=== PATIENT | male | born 1970 | race Hispanic/Latino ===

== ENCOUNTER 2019-12-02 16:39 | Inpatient (IN) | payer BC ==
[~2019-12-02] VITALS: Ht 170.2 cm; Wt 88.0 kg
[2019-12-02] MEDS ORDERED: ONDANSETRON HCL INJ 2MG/ML 2ML 2 MG/ML VIAL IV STA (16:41)
[2019-12-02] MEDS ORDERED: PANTOPRAZOLE 40 MG 10ML VIAL IV STA (16:41)
[2019-12-02] MEDS ORDERED: SODIUM CHLORIDE 0.9% 1000ML 1,000 ML IV ONE (16:45)
[2019-12-02 16:46] LABS: BASOPHILS % 0.3 % (0.0-1.0); EOSINOPHILS # (AUTO) 0.1 (0.0-0.4); EOSINOPHILS % 0.5 % (0.0-6.0); HEMATOCRIT 31.2 % (38.2-49.6); HEMOGLOBIN 10.5 g/dL (14.0-18.0); LYMPHOCYTES % 23.5 % (18.0-39.1); MEAN CORPUSCULAR HEMOGLOBIN 29.2 pg (28-32); MEAN CORPUSCULAR HGB CONC 33.7 g/dL (31-35); MEAN CORPUSCULAR VOLUME 86.7 fL (81-99); MONOCYTES # (AUTO) 0.7 (0.2-0.8); MONOCYTES % 5.4 % (4.4-11.3); NEUTROPHILS % 69.9 % (38.7-80.0); PLATELET COUNT 352 x10e3/uL (140-360); RED CELL DISTRIBUTION WIDTH 12.5 % (11.7-14.4)
[2019-12-02 16:50] LABS: ALANINE AMINOTRANSFERASE 16 IU/L (0-55); ALBUMIN 3.5 g/dL (3.5-5.0); ALBUMIN/GLOBULIN RATIO 1.3 (0.8-2.0); ALKALINE PHOSPHATASE 82 IU/L (40-150); ANION GAP 13.8 mmol/L (8-16); BLOOD UREA NITROGEN 22 mg/dL (7-26); BUN/CREATININE RATIO 27 (6-25); CALCIUM 8.4 mg/dL (8.4-10.2); CARBON DIOXIDE 22 mmol/L (22-29); CHLORIDE 103 mmol/L (98-107); CREATININE, SERUM 0.82 mg/dL (0.72-1.25); EST GLOMERULAR FILTRATION RATE > 60 ML/MIN (60-); GLUCOSE 133 mg/dL (74-118); POTASSIUM 3.8 mmol/L (3.5-5.1); SODIUM 135 mmol/L (136-145)
[2019-12-02 19:13] LABS: BASOPHILS % 0.3 % (0.0-1.0); EOSINOPHILS # (AUTO) 0.2 (0.0-0.4); EOSINOPHILS % 1.5 % (0.0-6.0); HEMATOCRIT 25.4 % (38.2-49.6); HEMOGLOBIN 8.8 g/dL (14.0-18.0); LYMPHOCYTES # (AUTO) 3.1 (1.0-3.2); LYMPHOCYTES % 26.2 % (18.0-39.1); MEAN CORPUSCULAR HEMOGLOBIN 29.7 pg (28-32); MEAN CORPUSCULAR HGB CONC 34.6 g/dL (31-35); MEAN CORPUSCULAR VOLUME 85.8 fL (81-99); MONOCYTES # (AUTO) 0.8 (0.2-0.8); MONOCYTES % 6.8 % (4.4-11.3); NEUTROPHILS # (AUTO) 7.7 (2.1-6.9); NEUTROPHILS % 64.6 % (38.7-80.0); PLATELET COUNT 275 x10e3/uL (140-360); RED BLOOD COUNT 2.96 x10e6/uL (4.3-5.7); RED CELL DISTRIBUTION WIDTH 12.9 % (11.7-14.4)
[2019-12-02] MEDS ORDERED: ONDANSETRON HCL INJ 2MG/ML 2ML 2 MG/ML VIAL IV PRN (19:30)
[2019-12-02] MEDS: SODIUM CHLORIDE 0.9% 1000ML 1,000 ML IV SCH ×2 (21:03→22:32)
[2019-12-02 21:29] VITALS: BP 121/75
--- NOTE | 2019-12-02 21:40 | NUR ---
RECEIVED REPORT FROM SANDY, ER NURSE. PATIENT ARRIVED VIA WHEELCHAIR ACCOMPANIED BY HIS . PATIENT IN NO PAIN OR DISTRESS. CALL LIGHT WITHIN REACH. PATIENT IS A&OX4 AND AMBULATES.
[2019-12-02 21:45] VITALS: BP 129/79
[2019-12-03] VITALS (7 sets, daily range): BP systolic 105–129; BP diastolic 65–79
[2019-12-03 00:56] LABS: HEMATOCRIT 22.5 % (38.2-49.6); HEMOGLOBIN 7.8 g/dL (14.0-18.0)
--- NOTE | 2019-12-03 01:15 | NUR ---
RECEIVED LAB RESULTS AND THE PATIENT'S H/H IS 7.8/22.5. CALLED AND TALKED TO DR. Vladislav MORIN ABOUT THE LAB RESULTS AND HE SAID USUALLY TRANSFUSE BLOOD UNDER 7 AND GIVE IRON INFUSION IV IN THE MORNING.
[2019-12-03 01:43] LABS: FERRITIN 221.09 ng/mL (21.81-274.66)
[2019-12-03] MEDS ORDERED: PNEUMOCOCCAL VACCINE POLYVALENT 23 MCG/0.5 ML VIAL IM SCH (03:18)
[2019-12-03 05:21] LABS: HEMATOCRIT 22.1 % (38.2-49.6); HEMOGLOBIN 7.5 g/dL (14.0-18.0)
[2019-12-03 05:42] LABS: INR 1.15; PROTHROMBIN TIME 15.4 seconds (11.9-14.5)
[2019-12-03 05:43] LABS: PARTIAL THROMBOPLASTIN TIME 28.9 seconds (23.8-35.5)
[2019-12-03] MEDS: SODIUM CHLORIDE 0.9% 1000ML 1,000 ML IV SCH ×2 (06:02→18:40)
--- NOTE | 2019-12-03 07:15 | NUR ---
Received patient lying in bed with eyes open. Respiration even and unlabored without SOB. NPO at this time since midnight for EGD today. Denies pain. Call light in reach. Spouse at bedside.
--- NOTE | 2019-12-03 07:27 | NUR ---
GAVE BEDSIDE SHIFT REPORT TO ONCOMING NURSE. CALL LIGHT WITHIN REACH. PATIENT ASLEEP IN BED. PATIENT IN NO PAIN OR DISTRESS. AT BEDSIDE
[2019-12-03] MEDS ORDERED: PANTOPRAZOLE 40 MG 10ML VIAL IV SCH (09:00)
[2019-12-03] MEDS: IRON SUCROSE 100 MG in SODIUM CHLORIDE 0.9% 100 ML 100 ML IV SCH (09:58)
[2019-12-03 12:00] LABS: HEMATOCRIT 22.6 % (38.2-49.6); HEMOGLOBIN 7.9 g/dL (14.0-18.0)
--- NOTE | 2019-12-03 12:30 | NUR ---
Patient is transported for EGD at this time.
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
--- NOTE | 2019-12-03 14:20 | NUR ---
Patient is back from EGD. Respiration even and unlabored without SOB. Call light in reach.
[2019-12-03] MEDS ORDERED: CYANOCOBALAMIN INJ 1,000 MCG/ML VIAL IM NR (15:00)
[2019-12-03] MEDS ORDERED: MIDAZOLAM HCL 2 MG/2 ML VIAL ONE (16:10)
[2019-12-03] MEDS ORDERED: FENTANYL CITRATE/PF 100MCG/2 ML INJ ONE (16:10)
--- NOTE | 2019-12-03 17:36 | Diagnostic Imaging Report ---
Abdominal ultrasound. History: Cirrhosis, anemia. Comparison: None available. Discussion: Portions of the liver were difficult to visualize secondary to overlying bowel gas. Transverse and longitudinal images of the abdomen were obtained demonstrating a liver of normal size and echogenicity measuring 15.5 cm in length. The portal vein is patent with hepatopetal flow and is within normal limits measuring 5 mm in diameter. The biliary tree is within normal limits with the common bile duct measuring 3 mm in diameter. The gallbladder is normal without evidence of stones, wall thickening, or pericholecystic fluid. The sonographic Snell's sign was negative. The kidneys are normal in size and echogenicity bilaterally without evidence of hydronephrosis, stones, or mass. The right kidney measures 12.9 cm and the left kidney measures 12.9 cm in length. The spleen is normal in size and appearance measuring 11.9 cm in length. The pancreas and IVC were obscured by overlying bowel gas. The abdominal aorta is within normal limits. There is no evidence of free fluid. IMPRESSION: Somewhat limited exam. No focal hepatic abnormality. Signed by: Dustin Robles on 12/03/2019 5:34 PM
[2019-12-03] MEDS ORDERED: PROPOFOL IV EMULSION 10 MG/ML 20 ML VIAL ONE (18:05)
[2019-12-03] MEDS ORDERED: LIDOCAINE HCL 2% LOCAL INJ 5 ML SDV VIAL INJ ONE (18:05)
[2019-12-03 18:42] LABS: HEMOGLOBIN 7.4 g/dL (14.0-18.0)
--- NOTE | 2019-12-03 19:12 | NUR ---
Report given to hose handler. Respiration even and unlabored without SOB. Call light in reach.
[2019-12-03] MEDS: PANTOPRAZOLE 40 MG 10ML VIAL IV SCH (21:08)
--- NOTE | 2019-12-03 21:21 | Operative Report ---
DATE OF PROCEDURE: 12/03/2019 SURGEON: Richard Lee MD PROCEDURES: EGD with biopsies. INDICATIONS FOR EGD: History of hematemesis, melena. MEDICATIONS: The patient was done under MAC, please see anesthesiologist's note. PROCEDURE IN DETAIL: With the patient in the left lateral decubitus position, a flexible fiberoptic Olympus gastroscope was introduced into the esophagus under direct visualization without any difficulty. Grade 1 esophageal varices were noted in the esophagus without active bleeding. The scope was then advanced with ease into the stomach and mucosa overlying the body and the antrum revealed changes compatible with portal hypertensive gastropathy. Biopsies were obtained and sent to stain for H pylori. Pylorus was of normal contour and shape was intubated with ease and the scope was advanced all the way to the second portion of the duodenum. The scope was then withdrawn slowly. Mucosa overlying the proximal second portion appeared to be within normal limits. Two ulcers were noted in the duodenal bulb up to 6 mm in size with somewhat heaped up margins without active bleeding. The scope was then withdrawn back into the stomach and retroflexed and mucosa overlying the fundus revealed some portal hypertensive gastropathy changes, but there were no fundal varices or cardiac varices. The scope was then straightened out and it was subsequently withdrawn and the patient tolerated procedure well. IMPRESSION: 1. Grade 1 esophageal varices without active bleeding. 2. Gastritis, biopsied. Biopsies were sent to stain for H pylori. 3. Portal hypertensive gastropathy. 4. Duodenal bulb ulcers x2 up to 6 mm in size with somewhat heaped up margins without active bleeding. PLAN: Follow up histology. Check acute hepatitis panel. Check ultrasound of the liver. Initiate clear liquid diet. Richard Lee MD [facility] [place]/MODL /[id number] cc: Kvng Retana MD
[2019-12-04] VITALS (8 sets, daily range): BP systolic 110–119; BP diastolic 64–76
--- NOTE | 2019-12-04 00:12 | NUR ---
DR. Sachi MORIN DOING ROUNDS. SAID CHANGE HH TO DAILY.
[2019-12-04] MEDS: SODIUM CHLORIDE 0.9% 1000ML 1,000 ML IV SCH ×3 (02:40→20:24)
[2019-12-04 05:57] LABS: BASOPHILS % 0.5 % (0.0-1.0); EOSINOPHILS # (AUTO) 0.3 (0.0-0.4); EOSINOPHILS % 3.3 % (0.0-6.0); HEMATOCRIT 21.8 % (38.2-49.6); HEMOGLOBIN 7.2 g/dL (14.0-18.0); LYMPHOCYTES # (AUTO) 1.9 (1.0-3.2); LYMPHOCYTES % 24.5 % (18.0-39.1); MEAN CORPUSCULAR HEMOGLOBIN 29.4 pg (28-32); MONOCYTES # (AUTO) 0.7 (0.2-0.8); MONOCYTES % 8.8 % (4.4-11.3); NEUTROPHILS # (AUTO) 4.8 (2.1-6.9); NEUTROPHILS % 62.6 % (38.7-80.0); PLATELET COUNT 253 x10e3/uL (140-360); RED BLOOD COUNT 2.45 x10e6/uL (4.3-5.7); RED CELL DISTRIBUTION WIDTH 13.3 % (11.7-14.4)
[2019-12-04 06:18] LABS: ALANINE AMINOTRANSFERASE 17 IU/L (0-55); ALBUMIN 2.9 g/dL (3.5-5.0); ALBUMIN/GLOBULIN RATIO 1.5 (0.8-2.0); ALKALINE PHOSPHATASE 69 IU/L (40-150); ANION GAP 9.6 mmol/L (8-16); BLOOD UREA NITROGEN 7 mg/dL (7-26); BUN/CREATININE RATIO 10 (6-25); CALCIUM 7.9 mg/dL (8.4-10.2); CARBON DIOXIDE 24 mmol/L (22-29); CHLORIDE 109 mmol/L (98-107); EST GLOMERULAR FILTRATION RATE > 60 ML/MIN (60-); GLUCOSE 98 mg/dL (74-118); POTASSIUM 3.6 mmol/L (3.5-5.1); SODIUM 139 mmol/L (136-145)
--- NOTE | 2019-12-04 07:00 | NUR ---
RECEIVED PATIENT AWAKE RESTING IN BED NO S/S OF DISTRESS. BED LOW, WHEELS LOCKED, SIDE RAILS X2. CALL LIGHT IN REACH WILL CONTINUE TO MONITOR PATIENT.
[2019-12-04] MEDS: CYANOCOBALAMIN INJ 1,000 MCG/ML VIAL IM SCH (09:39)
[2019-12-04] MEDS: IRON SUCROSE 100 MG in SODIUM CHLORIDE 0.9% 100 ML 100 ML IV SCH (09:39)
[2019-12-04] MEDS: PANTOPRAZOLE 40 MG 10ML VIAL IV SCH ×2 (09:39→21:08)
--- NOTE | 2019-12-04 09:48 | Progress Note ---
DATE: 12/04/2019 SUBJECTIVE: A 49-year-old gentleman who came in with acute GI bleed status post scope, found to have esophageal varices. The patient is currently on pantoprazole and Zofran. The patient is already on iron sucrose and vitamin B12 replacement. At this time, patient is symptom free. No chest pain. No shortness of breath and no palpitations. OBJECTIVE: VITAL SIGNS: Temperature is still 99, pulse of 94, respirations of 19, blood pressure is 110/76. HEENT: Normocephalic and atraumatic. No icterus present. CVS: S1 and S2 are normal. Regular rate and rhythm. ABDOMEN: Nontender, nondistended. EXTREMITIES: No clubbing, no cyanosis, no edema. LABORATORY VALUES: Hemoglobin is 11.2, hematocrit 21.8, white count 7.6. Chemistry; sodium of 139, potassium 3.9, BUN and creatinine 7 and 0.7. ALT and AST within normal limits. Total bilirubin within normal limits. B12 was low, has been replaced. ASSESSMENT: Mr. Dat Arias with: Esophageal varices with GI bleed. PLAN: Continue to monitor the patient's H and H. had MRI of the liver. Ultrasound of liver was within normal limits. The patient also will get a hepatitis panel and antibodies. We will continue to monitor the patient's status and possible discharge tomorrow depending on clinical course and also laboratory findings. Further recommendation per clinical course. We will continue to monitor the patient. Additional diagnosis includes iron deficiency and also B12 deficiency. MD ALDAIR Jerez/MODL /[id number]
--- NOTE | 2019-12-04 12:38 | NUR ---
PATIENT A/O X3, EVEN RESPIRATIONS ON RA. LUNG SOUNDS CLEAR TO AUSCULTATION. PATIENT TOLERATING GI SOFT DIET. RIGHT AC 20 GAUGE IV WITH NS @ 125 CC/HR. PATIENT AMBULATES INDEPENDENTLY. TELEMETRY #3 SR. NO PAIN AT THIS TIME. LAST BOWEL MOVEMENT FRIDAY. CALL LIGHT IN REACH WILL CONTINUE TO MONITOR PATIENT.
[2019-12-05 00:18] VITALS: BP 119/60
[2019-12-05 04:00] VITALS: BP 110/66
[2019-12-05] MEDS: SODIUM CHLORIDE 0.9% 1000ML 1,000 ML IV SCH (04:30)
[2019-12-05 05:24] LABS: BASOPHILS % 0.4 % (0.0-1.0); EOSINOPHILS # (AUTO) 0.3 (0.0-0.4); EOSINOPHILS % 3.3 % (0.0-6.0); HEMATOCRIT 23.9 % (38.2-49.6); HEMOGLOBIN 7.9 g/dL (14.0-18.0); LYMPHOCYTES # (AUTO) 2.3 (1.0-3.2); LYMPHOCYTES % 27.9 % (18.0-39.1); MEAN CORPUSCULAR HEMOGLOBIN 29.9 pg (28-32); MEAN CORPUSCULAR HGB CONC 33.1 g/dL (31-35); MEAN CORPUSCULAR VOLUME 90.5 fL (81-99); MONOCYTES # (AUTO) 0.6 (0.2-0.8); MONOCYTES % 7.9 % (4.4-11.3); NEUTROPHILS # (AUTO) 4.9 (2.1-6.9); NEUTROPHILS % 60.3 % (38.7-80.0); PLATELET COUNT 277 x10e3/uL (140-360); RED BLOOD COUNT 2.64 x10e6/uL (4.3-5.7); RED CELL DISTRIBUTION WIDTH 14.4 % (11.7-14.4)
[2019-12-05 05:48] LABS: ALANINE AMINOTRANSFERASE 15 IU/L (0-55); ALBUMIN/GLOBULIN RATIO 1.2 (0.8-2.0); ALKALINE PHOSPHATASE 77 IU/L (40-150); ANION GAP 12.4 mmol/L (8-16); BLOOD UREA NITROGEN 6 mg/dL (7-26); BUN/CREATININE RATIO 9 (6-25); CARBON DIOXIDE 23 mmol/L (22-29); CHLORIDE 109 mmol/L (98-107); CREATININE, SERUM 0.69 mg/dL (0.72-1.25); EST GLOMERULAR FILTRATION RATE > 60 ML/MIN (60-); GLUCOSE 110 mg/dL (74-118); POTASSIUM 3.4 mmol/L (3.5-5.1); SODIUM 141 mmol/L (136-145)
--- NOTE | 2019-12-05 07:00 | NUR ---
RECEIVED PATIENT AWAKE RESTING IN BED NO S/S OF DISTRESS. BED LOW, WHEELS LOCKED, SIDE RAILS X2. CALL LIGHT IN REACH WILL CONTINUE TO MONITOR PATIENT.
[2019-12-05 08:14] VITALS: BP 117/72
[2019-12-05] MEDS: CYANOCOBALAMIN INJ 1,000 MCG/ML VIAL IM SCH (09:06)
[2019-12-05] MEDS: PANTOPRAZOLE 40 MG 10ML VIAL IV SCH (09:06)
[2019-12-05 09:10] VITALS: BP 117/72
[2019-12-05] MEDS ORDERED: PNEUMOCOCCAL VACCINE POLYVALENT 23 MCG/0.5 ML VIAL IM SCH (09:15)
[2019-12-05] MEDS ORDERED: FERROUS SULFAT325 M1 PO (09:28)
[2019-12-05] MEDS ORDERED: PANTOPRAZOLE SO40 MG PO (09:29)
[2019-12-05] MEDS: IRON SUCROSE 100 MG in SODIUM CHLORIDE 0.9% 100 ML 100 ML IV SCH (10:00)
--- NOTE | 2019-12-05 11:23 | NUR ---
REMOVED PATIENTS IV. CATHETER TIP INTACT AND PRESSURE DRESSING APPLIED.
--- NOTE | 2019-12-05 11:23 | Progress Note ---
DATE: 12/05/2019 SUBJECTIVE: A 49-year-old male, who came in with acute GI bleed status post endoscopy with findings of esophageal varices. The patient's labs are pending. The patient is feeling stable. No complaints. No chest pain, no shortness of breath and no nausea, vomiting, or diarrhea. No palpitations. OBJECTIVE: VITAL SIGNS: Temperature is 98, pulse of 82, respirations of 18, blood pressure is 117/72, pulse oximetry of 98%. HEENT: Normocephalic and atraumatic. Pallor present. CVS: S1 and S2 normal. Regular rate and rhythm. ABDOMEN: Nontender, nondistended. EXTREMITIES: No clubbing, no cyanosis, no edema. LABORATORY DATA: Today's hemoglobin is trended up to 7.9, hematocrit 23.9. Chemistry; sodium 141, potassium 3.4, BUN of 6, creatinine 0.69. Albumin, globulin, ALT, AST, all within normal limits. TIBC 263, iron of 112, and ferritin of 221.9. Folate is pending. Other labs include antimitochondrial antibody and OSITO and hepatitis panel are pending. ASSESSMENT: Mr. Dat Arias is status post GI bleed. The patient's hemoglobin is trending up and feeling better. The patient can be discharged home to be followed up with me in about 3 days and also with Dr. Richard Lee in about a week to see findings and to further investigate the liver findings. Ultrasound was normal. Plan is to discharge the patient home. Strict warnings about GI bleed have been given including melena, BRBPR, and also if the patient felt increased palpitation and chest pain, come back to the ER. Further recommendation per clinical course. MD ALDAIR Jerez/BRETT /[id number]
--- NOTE | 2019-12-05 11:56 | NUR ---
PATIENT DISCHARGED FROM FACILITY. PATIENT GATHERED ALL PERSONAL BELONGINGS, DISCHARGE INSTRUCTIONS, AND FOLLOW UP INFORMATION. PATIENT LEFT UNIT IN WHEELCHAIR AND WENT HOME VIA PRIVATE AUTO. NO S/S OF DISTRESS WHEN LEAVING FACILITY. Addendum: 12/05/19 at 1157 by Karena Poon RN PATIENT DISCHARGED AT 1138.
[2019-12-05 12:08] VITALS: BP 128/74
--- NOTE | 2019-12-26 12:20 | Discharge Summary ---
HOSPITAL COURSE: A 49-year-old male, who came in with GI bleed. A consult with Dr. Richard Lee was done. The patient underwent a colonoscopy, endoscopy. The patient's endoscopy showed grade 1 esophageal varices without active bleeding. Gastritis, biopsied. Biopsies were sent for H pylori. Portal hypertensive gastropathy was noted. Duodenal bulb ulcers x2 were noted and also without active bleeding. The patient's iron levels are noted, which showed to be low. We increased and we gave him some iron transfusion. The patient did better. LABORATORY STUDIES: Hemoglobin improved to 7.9, hematocrit 23.9. Chemistry shows sodium 141, potassium 3.4 on discharge. ALT, AST all within normal limits. TIBC was 263, iron of 112, ferritin was 21.9. The patient given strict warning about GI bleedings. Ultrasounds of the liver were done, which was normal. The patient is asked to follow up with Dr. Richard Lee and with me for hemoglobin and hematocrit. FINAL DIAGNOSES: Mr. Dat Arias with: 1. Blood loss anemia. 2. Esophageal varices. 3. Iron deficiency anemia. PLAN: Again to be followed up by me and Dr. Lee. The patient also needs to treat his vitamin B12 deficiency. MD ALDAIR Jerez/MODL /[id number]
== END 2019-12-05 11:38 | disposition home or self-care (01) | DRG 369 ==
LOC: ER 16:39 → ERHOLD 19:33 → MED/SURG 22:18 → OBSVTOIN 12-04 07:45
PROVIDERS: ADMIT Family Medicine; ATTEND Family Medicine
PROC: 0DB78ZX Excision of Stomach, Pylorus, Via Natural or Artificial Opening Endoscopic, Diagnostic (ICD-10-PCS; principal; 2019-12-03 13:18)
DX: I85.01 Esophageal varices with bleeding (principal); D62 Acute posthemorrhagic anemia; K76.6 Portal hypertension; K29.70 Gastritis, unspecified, without bleeding; K26.9 Duodenal ulcer, unspecified as acute or chronic, without hemorrhage or perforation; D50.9 Iron deficiency anemia, unspecified; D51.9 Vitamin B12 deficiency anemia, unspecified; K31.89 Other diseases of stomach and duodenum; D51.3 Other dietary vitamin B12 deficiency anemia
CPT/HCPCS: 36415; 43239; 76700; 80053; 82607; 82728; 82746; 83540; 84466; 85014; 85018; 85025; 85045; 85610; 85730; 86039; 86255; 86850; 86900; 88305; 88312; 99284; G0378; J1756; J2001; J2250; J3010